=== PATIENT | male | born 1990 | race African-American/Black ===

== ENCOUNTER 2022-05-25 00:04 | Emergency (ER) | payer MEDICAID ==
[~2022-05-25] VITALS: Ht 208.3 cm; Wt 125.0 kg
[2022-05-25 01:18] LABS: BASOPHILS % 0.3 % (0.0-2.0); EOSINOPHILS % 0.5 % (0.0-5.0); HEMATOCRIT. 44.3 % (42.0-52.0); HEMOGLOBIN. 14.7 g/dL (14.0-18.0); MEAN CORPUSCULAR HEMOGLOBIN 30.6 pg (28.0-32.0); MEAN CORPUSCULAR VOLUME 91.8 fL (80.0-94.0); MEAN PLATELET VOLUME 8.4 fl (7.4-10.4); MONOCYTES % 6.1 % (2.0-8.0); NEUTROPHILS % 74.1 % (40.0-76.0); PLATELET 232 x1000/uL (130-400); RED BLOOD CELL COUNT 4.82 mill/uL (4.7-6.1); RED CELL DISTRIBUTION WIDTH 13.3 % (11.6-14.6)
[2022-05-25 01:27] LABS: CHLORIDE 110 mEq/L (98-107)
[2022-05-25] MEDS ORDERED: TETANUS, DIPHTHERIA, PERTUSSIS VAC/PF 0.5ML (>10YR OLD) IM ONE (02:00)
[2022-05-25] MEDS ORDERED: HYDROCODONE/ACETAMINOPHEN 10/325MG TABLET PO ONE (02:00)
[2022-05-25] MEDS ORDERED: MORPHINE SULFATE 4 MG/ML CPJ (NOT FOR IM USE) IV ONE (04:30)
[2022-05-25] MEDS ORDERED: MORPHINE SULFATE 4 MG/ML CPJ (NOT FOR IM USE) IV STA (05:30)
[2022-05-25] MEDS ORDERED: SODIUM CHLORIDE 0.9% 1,000 ML IV ONE (05:30)
[2022-05-25] MEDS ORDERED: ONDANSETRON HCL 4MG/2ML INJ IV STA (05:30)
[2022-05-25 09:26] VITALS: BP 144/65
== END 2022-05-25 09:45 | disposition short-term general hospital (02) ==
LOC: ER 00:04
DX: S32.462A Displaced associated transverse-posterior fracture of left acetabulum, initial encounter for closed fracture (principal); S73.015A Posterior dislocation of left hip, initial encounter; R51.9 Headache, unspecified; Z20.822 Contact with and (suspected) exposure to COVID-19; V49.9XXA Car occupant (driver) (passenger) injured in unspecified traffic accident, initial encounter; Y93.89 Activity, other specified; Y92.89 Other specified places as the place of occurrence of the external cause; Y99.8 Other external cause status
CPT/HCPCS: 36415; 70450; 70486; 71045; 72125; 72170; 72192; 73090; 73130; 80053; 83690; 85025; 86850; 86900; 86901; 87426; 90471; 90715; 96374; 96375; 96376; 99291; C9803; J2270; J2405; J7030